=== PATIENT | male | born 1990 | race American Indian/Alaskan Native ===

== ENCOUNTER 2017-02-25 17:13 | Emergency (ER) | payer SELFPAY ==
--- NOTE | 2017-02-25 23:38 | Emergency Department Report ---
- General Chief Complaint: Upper Respiratory Infection Stated Complaint: FLU SYMPTOMS Time Seen by Provider: 02/25/17 23:36 Source: patient Mode of arrival: Ambulatory Limitations: No Limitations - History of Present Illness Initial Comments: 25-year-old male presents to emergency room with complaints of flulike symptoms for last 2 days. He states that someone at his work has a flu and there is a possibility may have a too. Complaints of low-grade fever and body aches. Also complains of right-sided sinus congestion, sore throat, yellow productive cough. Denies any difficulty breathing or chest pain. Vision has not been taking any [id number] medication for his flu symptoms. MD Complaint: fever, cough, sore throat, rhinorrhea, nasal congestion, sinus pain, other (bodyaches) -: Gradual, days(s) (2) Severity: moderate Severity scale (0 -10): 2 Quality: dull Consistency: constant Improves With: nothing Worsens With: activity Context: sick contacts (co-worker has a Flu) Associated Symptoms: fever, myalgias, cough Treatments Prior to Arrival: none - Related Data Previous Rx's Medication Instructions Recorded Last Taken Type Doxycycline [Vibramycin CAP] 100 mg PO Q12HR #20 capsule 11/28/15 Unknown Rx metroNIDAZOLE [Flagyl] 500 mg PO Q12HR #20 tab 11/28/15 Unknown Rx Azithromycin [Zithromax Z-JORDAN] 0 mg PO DAILY #1 pack 02/25/17 Unknown Rx Cetirizine HCl [ZyrTEC] 10 mg PO DAILY #20 capsule 02/25/17 Unknown Rx Oseltamivir [Tamiflu] 75 mg PO BID #10 cap 02/25/17 Unknown Rx predniSONE [Deltasone] 40 mg PO DAILY #10 tablet 02/25/17 Unknown Rx Allergies Allergy/AdvReac Type Severity Reaction Status Date / Time No Known Allergies Allergy Unverified 11/28/15 10:19 ED Review of Systems ROS: Stated complaint: FLU SYMPTOMS Other details as noted in HPI Comment: All other systems reviewed and negative Constitutional: chills, fever, malaise Eyes: denies: eye pain, eye discharge, vision change ENT: throat pain. denies: ear pain Respiratory: cough (yellow productive). denies: shortness of breath, wheezing Cardiovascular: denies: chest pain, palpitations Endocrine: no symptoms reported Gastrointestinal: denies: abdominal pain, nausea, diarrhea Genitourinary: denies: urgency, dysuria Musculoskeletal: arthralgia. denies: back pain, joint swelling Skin: denies: rash, lesions Neurological: denies: headache, weakness, paresthesias Psychiatric: denies: anxiety, depression Hematological/Lymphatic: denies: easy bleeding, easy bruising ED Past Medical Hx - Past Medical History Previous Medical History?: Yes - Surgical History Past Surgical History?: No - Social History Smoking Status: Current Every Day Smoker Substance Use Type: Alcohol - Medications Home Medications: Home Medications Medication Instructions Recorded Confirmed Last Taken Type Doxycycline [Vibramycin CAP] 100 mg PO Q12HR #20 capsule 11/28/15 Unknown Rx metroNIDAZOLE [Flagyl] 500 mg PO Q12HR #20 tab 11/28/15 Unknown Rx Azithromycin [Zithromax Z-JORDAN] 0 mg PO DAILY #1 pack 02/25/17 Unknown Rx Cetirizine HCl [ZyrTEC] 10 mg PO DAILY #20 capsule 02/25/17 Unknown Rx Oseltamivir [Tamiflu] 75 mg PO BID #10 cap 02/25/17 Unknown Rx predniSONE [Deltasone] 40 mg PO DAILY #10 tablet 02/25/17 Unknown Rx ED Physical Exam - General Limitations: No Limitations General appearance: alert, in no apparent distress - Head Head exam: Present: atraumatic, normocephalic, other (mild right frontal sinus tenderness) - Eye Eye exam: Present: normal appearance - ENT ENT exam: Present: mucous membranes moist - Neck Neck exam: Present: normal inspection, full ROM. Absent: tenderness, meningismus - Respiratory Respiratory exam: Present: normal lung sounds bilaterally. Absent: respiratory distress, wheezes, rales, rhonchi, stridor - Cardiovascular Cardiovascular Exam: Present: regular rate, normal rhythm. Absent: systolic murmur, diastolic murmur, rubs, gallop - GI/Abdominal GI/Abdominal exam: Present: soft, normal bowel sounds - Rectal Rectal exam: Present: deferred - Extremities Exam Extremities exam: Present: normal inspection - Back Exam Back exam: Present: normal inspection - Neurological Exam Neurological exam: Present: alert, oriented X3 - Psychiatric Psychiatric exam: Present: normal affect, normal mood - Skin Skin exam: Present: warm, dry, intact, normal color. Absent: rash ED Course Vital Signs 02/25/17 18:14 Temperature 98.5 F Pulse Rate 80 Respiratory 20 Rate Blood Pressure 134/90 O2 Sat by Pulse 100 Oximetry Critical care attestation.: If time is entered above; I have spent that time in minutes in the direct care of this critically ill patient, excluding procedure time. ED Disposition Clinical Impression: Flu-like symptoms Acute bronchitis Qualifiers: Bronchitis organism: unspecified organism Qualified Code(s): J20.9 - Acute bronchitis, unspecified Acute sinusitis Qualifiers: Sinusitis location: frontal Recurrence: non-recurrent Qualified Code(s): J01.10 - Acute frontal sinusitis, unspecified Disposition: DISCHARGED TO HOME OR SELFCARE Is pt being admited?: No Does the pt Need Aspirin: No Condition: Stable Instructions: Acute Bronchitis (ED), Viral Syndrome (ED) Prescriptions: Azithromycin [Zithromax Z-JORDAN] 0 mg PO DAILY #1 pack Cetirizine HCl [ZyrTEC] 10 mg PO DAILY #20 capsule Oseltamivir [Tamiflu] 75 mg PO BID #10 cap predniSONE [Deltasone] 40 mg PO DAILY #10 tablet Referrals: PRIMARY CARE, [Primary Care Provider] - 3-5 Days Forms: Work/School Release Form(ED)
[2017-02-26 00:39] VITALS: BP 135/77
== END 2017-02-26 00:10 | disposition home or self-care (01) ==
LOC: ED 17:13
DX: J02.9 Acute pharyngitis, unspecified (principal); F17.200 Nicotine dependence, unspecified, uncomplicated; J01.10 Acute frontal sinusitis, unspecified; J11.1 Influenza due to unidentified influenza virus with other respiratory manifestations
CPT/HCPCS: 99282

== ENCOUNTER 2017-07-10 22:43 | Emergency (ER) | payer OTHER ==
[2017-07-10 23:19] VITALS: BP 157/96
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
[2017-07-11] MEDS ORDERED: MOTRIN PO ONE (01:09)
== END 2017-07-11 01:53 | disposition home or self-care (01) ==
LOC: ED 22:43
DX: S13.4XXA Sprain of ligaments of cervical spine, initial encounter (principal); S39.012A Strain of muscle, fascia and tendon of lower back, initial encounter; F17.200 Nicotine dependence, unspecified, uncomplicated; V49.49XA Driver injured in collision with other motor vehicles in traffic accident, initial encounter; Y93.9 Activity, unspecified; Y92.9 Unspecified place or not applicable; Y99.9 Unspecified external cause status
CPT/HCPCS: 99282